=== PATIENT | female | born 1980 | race Caucasian/White ===

== ENCOUNTER 2017-02-23 02:15 | Emergency (ER) | payer MEDICAID ==
[~2017-02-23] VITALS: Ht 160 cm; Wt 84.2 kg
[~2017-02-23 02:15] MED LIST: FERR134T PO; FOLI0.8C PO; IBUP800T25 PO; METF500T3 PO; METF500T4 PO; PERCOCET PO; PRENAT PO
[2017-02-23 02:38] VITALS: Ht 160 cm; Wt 84.2 kg
[2017-02-23] MEDS ORDERED: FAMOTIDINE 20 MG TAB PO STA (03:06)
[2017-02-23] MEDS ORDERED: SOD CHLORIDE 0.9% 500 ML IV STA (03:06)
[2017-02-23] MEDS ORDERED: BELLADONNA/PHENOBARBITAL TAB PO STA (03:06)
[2017-02-23] MEDS ORDERED: LIDOCAINE/MYLANTA 40 ML BTL PO STA (03:06)
[2017-02-23] MEDS ORDERED: MAG355OR14 PO (03:09)
--- NOTE | 2017-02-23 03:16 | ERD ---
ER Documentation Chief Complaint Chief Complaint pain mid chest/back x 4 hours HPI 37-year-old woman is 4 weeks by dates complains of anterior chest pressure pain, radiating to the back beginning last night shortly after eating tacos. She states she has had similar episodes in the past although last one was about a year ago. She denies exertional pain, she states the pain has improved, she has had some belching, denies vomiting or diarrhea, she has had no dysuria, no vaginal bleeding, no abdominal pain or cramping. Patient denies pelvic pain or discomfort. ROS All systems reviewed and are negative except as per history of present illness. Medications Home Meds Active Scripts Mag Hydrox/Al Hydrox/Simeth (Maalox Advanced Suspension) 355 Ml Oral.susp, 2 TSP PO TID for PAIN, #24 OZ Prov:JOSELINE WOOTEN MD 02/23/17 Oxycodone Hcl/Acetaminophen (Percocet) 1 Tab Tab, 2 TAB PO Q4H Y for PAIN LEVEL 6-10, #30 TAB 0 Refills Prov:DAYNE BARTON MD 02/17/16 Ibuprofen* (Ibuprofen*) 800 Mg Tablet, 800 MG PO Q8, #20 TAB 0 Refills Prov:DAYNE BARTON MD 02/17/16 Metformin* (Glucophage* XR) 500 Mg Tab.sr.24h, 500 MG PO BID WITH MEALS, #120 4 Refills Prov:DAYNE BARTON MD 02/17/16 Reported Medications Metformin* (Glucophage*) 500 Mg Tab, 500 MG PO WITH BREAKFAST, #30 TAB 02/15/16 Folic Acid (Folic Acid) 0.8 Mg Capsule, 0.8 MG PO, CAP 02/15/16 Ferrous Sulfate (Iron) 134 Mg Tablet, 134 MG PO DAILY, TAB 02/15/16 Multivit/Min/Fol Ac/Iron/Pren* ( S*) 1 Tab Tab, 1 TAB PO DAILY, TAB 02/15/16 Allergies Allergies: Coded Allergies: No Known Drug Allergies (Verified Allergy, Unknown, 02/23/17) PMhx/Soc None History of Surgery: Yes () Anesthesia Reaction: No Hx Neurological Disorder: No Hx Respiratory Disorders: No Hx Cardiac Disorders: No Hx Psychiatric Problems: No Hx Miscellaneous Medical Probl: Yes (gestational diabetes) Hx Alcohol Use: No Hx Substance Use: No Hx Tobacco Use: No Smoking Status: Never smoker FmHx Family History: No diabetes Physical Exam Vitals Vital Signs Date Time Temp Pulse Resp B/P Pulse Ox O2 Delivery O2 Flow Rate FiO2 02/23/17 05:04 98.0 68 18 102/81 98 Room Air 02/23/17 02:38 97.6 85 20 121/59 100 Physical Exam GENERAL: Well-developed, well-nourished, well-hydrated, in no apparent distress , looks nontoxic in appearance HEENT: Moist mucous membranes, pink conjunctiva, no cervical spine tenderness or step-off deformities, no goiter, no jaundice or icterus, extraocular movements intact without pain. No submandibular induration, and no pharyngeal erythema NEURO: Alert and oriented 3, cranial nerves II through XII intact bilaterally, pupils equal round reactive to light, no focal deficits or facial asymmetry, sensation intact distally Strength 5/5 in upper and lower extremities bilaterally CARDIAC: Regular rate and rhythm, no murmurs rubs or gallops LUNGS: Clear bilaterally no wheezing crackles or stridor ABDOMEN: Soft nontender, no guarding, no rigidity, no rebound, no psoas sign no obturator sign. Normoactive bowel sounds SKIN: Warm and dry to touch, no abrasions, contusions, or hematomas, no lacerations, no ecchymosis, no target lesions, and without ulcers EXTREMITIES: No clubbing cyanosis or edema, calves are bilaterally symmetrical, no Homans sign, no popliteal cord sign. Distal pulses equal and bilateral PSYCH: Normal affect without agitation or irritability Result Diagram: 02/23/17 0329 02/23/17 0329 Results 24 hrs Laboratory Tests Test 02/23/17 03:29 White Blood Count 11.310^3/ul Red Blood Count 4.3010^6/ul Hemoglobin 12.6g/dl Hematocrit 38.0% Mean Corpuscular Volume 88.4fl Mean Corpuscular Hemoglobin 29.3pg Mean Corpuscular Hemoglobin Concent 33.2g/dl Red Cell Distribution Width 14.0% Platelet Count 58575^3/UL Mean Platelet Volume 11.7fl Neutrophils % 76.6% Lymphocytes % 17.8% Monocytes % 3.8% Eosinophils % 0.8% Basophils % 0.3% Nucleated Red Blood Cells % 0.0/100WBC Neutrophils # 8.710^3/ul Lymphocytes # 2.010^3/ul Monocytes # 0.410^3/ul Eosinophils # 0.110^3/ul Basophils # 0.010^3/ul Nucleated Red Blood Cells # 0.010^3/ul Sodium Level 140mmol/L Potassium Level 3.9mmol/L Chloride Level 105mmol/L Carbon Dioxide Level 25mmol/L Anion Gap 14 Blood Urea Nitrogen 12mg/dl Creatinine 0.72mg/dl Glucose Level 116mg/dl Calcium Level 9.2mg/dl Total Bilirubin 0.4mg/dl Direct Bilirubin 0.00mg/dl Indirect Bilirubin 0.4mg/dl Aspartate Amino Transf (AST/SGOT) 53IU/L Alanine Aminotransferase (ALT/SGPT) 52IU/L Alkaline Phosphatase 92IU/L Troponin I < 0.012ng/ml Total Protein 8.0g/dl Albumin 4.0g/dl Globulin 4.00g/dl Albumin/Globulin Ratio 1.00 Lipase 60U/L Current Medications Medications (Trade) Dose Ordered Sig/Brynn Route PRN Reason Start Time Stop Time Status Last Admin Dose Admin Sodium Chloride (NS) 500 ml @ 500 mls/hr Q1H STAT IV 02/23/17 03:06 02/23/17 04:05 DC 02/23/17 03:37 Famotidine (Pepcid) 20 mg ONCE STAT PO 02/23/17 03:06 02/23/17 03:07 DC 02/23/17 03:38 Miscellaneous Medication (Gi Cocktail (2)) 40 ml ONCE STAT PO 02/23/17 03:06 02/23/17 03:08 DC 02/23/17 03:38 Belladonna/ Phenobarbital () 2 tab ONCE STAT PO 02/23/17 03:06 02/23/17 03:08 DC 02/23/17 03:38 Acetaminophen (Tylenol Tab) 650 mg ONCE ONCE PO 02/23/17 03:30 02/23/17 03:31 DC 02/23/17 03:38 Procedures/MDM IV line was established patient was placed on rf manager rhythm strip revealed a sinus rhythm at about 100 bpm with upright P and T waves. Patient was afebrile I administered 500 cc of normal saline intravenously, famotidine 40 mg p.o., acetaminophen 650 mg p.o. 1, GI cocktail 30 cc p.o. with good effect. EKG performed, read by me: 84 bpm, normal sinus rhythm, normal axis, no acute ST segment changes, narrow QRS complex, with good R-wave progression in precordial leads. Prolonged QT of 504 ms. CBC and electrolytes were normal, liver function tests were normal, troponin was negative. Differential diagnoses considered, included but not limited to acute coronary syndrome, pulmonary embolism, aortic dissection, abdominal aortic aneurysm, sepsis, stroke, meningitis, encephalitis, pneumonia, appendicitis, cholecystitis , bowel obstruction, pyelonephritis, nephrolithiasis, cystitis, as well as metabolic, hematologic, and electrolyte abnormalities. As well as abscess, cellulitis, fractures, and dislocations. Patient feels much better at this time, and vital signs are normal, symptoms have improved. I did give strict instructions to return to the ED if symptoms continue or worsen, patient will otherwise follow-up with primary care physician. Patient understood instructions and agreed to plan. Disclaimer: Inadvertent spelling and grammatical errors are likely due to EHR/ dictation software use and do not reflect on the overall quality of patient care. Also, please note that the electronic time recorded on this note does not necessarily reflect the actual time of the patient encounter. Departure Diagnosis: Primary Impression: Chest pain Chest pain type: unspecified Qualified Code: R07.9 - Chest pain, unspecified type Additional Impressions: GERD (gastroesophageal reflux disease) Esophagitis presence: with esophagitis Qualified Code: K21.0 - Gastroesophageal reflux disease with esophagitis First trimester Condition: Good Patient Instructions: After Age 35, : Your First Trimester Changes, Chest Pain, Uncertain Cause, Gerd (Adult) JOSELINE WOOTEN MD Feb 23, 2017 03:16
[2017-02-23] MEDS ORDERED: ACETAMINOPHEN 325 MG TAB PO ONE (03:30)
[2017-02-23 04:05] LABS: BASOPHILS % 0.3 % (0.0-2.0); EOSINOPHILS # 0.1 10^3/ul (0.0-0.5); EOSINOPHILS % 0.8 % (0.0-7.0); HEMOGLOBIN 12.6 g/dl (12.0-16.0); LYMPHOCYTES % 17.8 % (15.0-51.0); MEAN CORPUSCULAR HEMOGLOBIN 29.3 pg (29.0-33.0); MEAN CORPUSCULAR HGB CONC 33.2 g/dl (32.0-37.0); MEAN CORPUSCULAR VOLUME 88.4 fl (82.0-101.0); MEAN PLATELET VOLUME 11.7 fl (7.4-10.4); MONOCYTE # 0.4 10^3/ul (0.3-0.9); MONOCYTES % 3.8 % (0.0-11.0); NEUTROPHIL # 8.7 10^3/ul (1.6-7.5); NEUTROPHILS % 76.6 % (39.0-77.0); PLATELET COUNT 205 10^3/UL (140-415); WHITE BLOOD COUNT 11.3 10^3/ul (4.8-10.8)
[2017-02-23 04:22] LABS: ALANINE AMINOTRANSFERASE 52 IU/L (13-69); ALKALINE PHOSPHATASE 92 IU/L (42-121); ANION GAP 14 (8-16); ASPARTATE AMINO TRANSFERASE 53 IU/L (15-46); BILIRUBIN,INDIRECT 0.4 mg/dl (0-1.1); BILIRUBIN,TOTAL 0.4 mg/dl (0.2-1.3); BLOOD UREA NITROGEN 12 mg/dl (7-20); CALCIUM 9.2 mg/dl (8.4-10.2); CARBON DIOXIDE 25 mmol/L (21-31); CHLORIDE 105 mmol/L (97-110); CREATININE 0.72 mg/dl (0.44-1.00); GLUCOSE 116 mg/dl (70-220); POTASSIUM 3.9 mmol/L (3.5-5.1); SODIUM 140 mmol/L (135-144)
[2017-02-23 04:34] LABS: TROPONIN-I < 0.012 ng/ml (0.00-0.12)
[2017-02-23 05:04] VITALS: BP 102/81; PULSE 68; RESP 18; TEMP 98
== END 2017-02-23 05:18 | disposition home or self-care (01) ==
LOC: E/R 02:15
DX: O99.611 Diseases of the digestive system complicating pregnancy, first trimester (principal); R40.2252 Coma scale, best verbal response, oriented, at arrival to emergency department; K21.0 Gastro-esophageal reflux disease with esophagitis; R40.2142 Coma scale, eyes open, spontaneous, at arrival to emergency department; R40.2362 Coma scale, best motor response, obeys commands, at arrival to emergency department; Z3A.01 Less than 8 weeks gestation of pregnancy; Z79.84 Long term (current) use of oral hypoglycemic drugs
CPT/HCPCS: 36415; 80053; 83690; 84484; 85025; 93005; J7040; Z7502; Z7610

== ENCOUNTER → 2017-06-18 | Outpatient (CLI) | END | disposition home or self-care (01) ==

== ENCOUNTER 2017-10-13 13:38 | Inpatient (IN) | END 2017-10-16 14:00 | disposition home or self-care (01) | DRG 766 ==